=== PATIENT | female | born 1950 | race Two or more races ===

== ENCOUNTER → 2017-08-12 | Outpatient (CLI) | payer OTHER | LOC: FIMAGING 07:55 | PROVIDERS: ATTEND Family Medicine | DX: D32.9 Benign neoplasm of meninges, unspecified (principal) ==

== ENCOUNTER → 2017-08-31 | Outpatient (CLI) | payer OTHER | LOC: FIMAGING 14:17 | PROVIDERS: ATTEND Family Medicine | DX: R92.8 Other abnormal and inconclusive findings on diagnostic imaging of breast (principal) ==

== ENCOUNTER 2017-10-19 15:29 | Inpatient (IN) | payer OTHER ==
--- NOTE | 2017-10-19 15:41 | CPEKG ---
Heart Rate: 68 RR Interval: 882 P-R Interval: 188 QRSD Interval: 134 QT Interval: 440 QTC Interval: 469 P [place]: 45 QRS [place]: 3 T Wave [place]: 16 EKG Severity - ABNORMAL ECG - EKG Impression: SINUS RHYTHM EKG Impression: NONSPECIFIC INTRAVENTRICULAR CONDUCTION DELAY Electronically Signed By: Rodney Banuelos 19-Oct-2017 22:14:42
[2017-10-19 15:58] LABS: PLATELET COUNT 196 10^3/uL (150-400)
[2017-10-19] MEDS ORDERED: ASPIRIN 81 MG CHEWABLE TAB PO ONE (16:09)
[2017-10-19] MEDS ORDERED: MAG HYDROX/AL HYDROX/SIMETH 30 ML UDCUP PO ONE (16:09)
[2017-10-19] MEDS ORDERED: HYOSCYAMINE SULFATE 0.125 MG TAB PO ONE (17:14)
[2017-10-19] MEDS ORDERED: IOPAMIDOL (ISOVUE-370) 150 ML BTL IV ONE (17:40)
[2017-10-19] MEDS ORDERED: NITROGLYCERIN 0.4 MG BTL SL ONE (18:37)
--- NOTE | 2017-10-19 18:54 | EDPHY ---
H & P Stated Complaint: Chest Pressure and SOB started 0700 Time Seen by Provider: 10/19/17 15:55 HPI/ROS: This patient reports onset of chest discomfort described as pressure with occasional sharp pain started at 7:00 a.m. This morning. She reports it has been fairly constant since that time with peak intensity of 9/10, currently 8/ 10. She reports some radiation to the left shoulder associated with the symptoms. She notes no clear exacerbating factors. She did try 1 supple nitroglycerin prior to arrival without change in her discomfort. Her brought her in by private vehicle for further evaluation of her chest pressure. She reports associated fatigue over the past 2 weeks and reports that she has had intermittent fleeting pains for 2 weeks but no steady pressure until today. She also reports associated dyspnea that is mild with her symptoms today. ROS: Constitutional: Positive fatigue. No fevers. She reports increased sleep recently due to her fatigue. HEENT: No complaints new line pulmonary as per HPI-dyspnea and dyspnea on exertion recently. Cardiovascular: As per HPI. She also reports 8 months of ankle swelling since moving to [place] from [place]. She reports that she stop taking her amlodipine 3 weeks ago due to the perception that might be causing her ankle swelling. She reports compliance with her medications GI: Positive nausea and also some reflux symptoms described as occasional burning and belching. She reports increasing her AcipHex antacid dose 3 weeks ago due to increased GERD recently. : No urinary symptoms or other complaints Endocrine: No complaints integumentary: No diaphoresis or rash or pallor. Complete review of symptoms otherwise negative Source: Patient Exam Limitations: No limitations - Medical/Surgical History PMH: Coronary artery disease is noted on in angiogram in [place] 18 years ago. However it was not significant at that time. Her route salesperson injured digit prescribed nitroglycerin for occasional chest pains. She subsequently had negative stress tests and echocardiograms on a annular semi annual basis. Since moving [place] she has seen Kasi Pattonulder heart. Also history of GERD Other PMH: high cholestrol, ortho surg, tonsilectomy, c/s, abd surg, sinus surg , anxiety, depression, hypothyroidism, cataract surg - Family History Significant Family History: Heart disease (Family history of a brother with an OH at age 30 and mother with coronary disease in her 40s) - Social History Smoking Status: Never smoked Alcohol Use: Occasionally Drug Use: None - Physical Exam Exam: General Appearance: Pleasant 67-year-old female Alert, no distress. Eyes: Pupils equal and round no pallor or injection. ENT, Mouth: Mucous membranes moist. Respiratory: There are no retractions, lungs are clear to auscultation. Cardiovascular: Regular rate and rhythm. No murmur gallop or rub. No JVD. No peripheral edema. Gastrointestinal: Abdomen is soft and nontender, no masses, bowel sounds normal. Neurological: GCS 15. No focal deficits Skin: Warm and dry, no rashes. Musculoskeletal: Neck is supple nontender. Extremities are symmetrical, full range of motion. Psychiatric: Mood and affect normal DIFFERENTIAL DIAGNOSIS: After history and physical exam differential diagnosis was considered for myocardial ischemic disease, GERD with esophageal spasm, aortic pathology, pancreatitis, pneumothorax, pneumonia, pulmonary embolism Constitutional: Initial Vital Signs Temperature (C) 36.6 C 10/19/17 15:34 Heart Rate 69 10/19/17 15:34 Respiratory Rate 18 10/19/17 15:34 Blood Pressure 152/96 H 10/19/17 15:34 O2 Sat (%) 96 10/19/17 15:34 O2 Delivery Mode Room Air Allergies/Adverse Reactions: MELANIE Inhibitors Allergy (Verified 10/19/17 15:42) [id number] Reductase Inhibitor Allergy (Verified 10/19/17 15:42) Home Medications: Medication Instructions Recorded Aspirin 81mg (*) 10/19/17 Famotidine 10/19/17 Flonase Nasal [place] 10/19/17 Lexapro 10/19/17 Micardis 10/19/17 Rabeprazole Sodium 10/19/17 Repatha Syringe 10/19/17 Synthroid 10/19/17 Medical Decision Making - Diagnostics EKG Interpretation: EKG indication: Chest pain 12 lead EKG performed shortly after arrival at 3:39 p.m. Reveals sinus rhythm at 68 Intervals: P R of 188 QRS of 134, QTC of 469 Other intervals are normal. ST 2nd normal throughout. Overall assessment sinus rhythm with nonspecific interventricular conduction delay. Repeat EKG performed at 6:54 p.m. To eval for interval change reveals sinus rhythm at 50 a, persistent interventricular conduction delay and no interval change by my interpretation Imaging Results: Imaging Impressions Chest X-Ray 10/19/17 17:11 Impression: 1. Query dilated ascending aorta. 2. Clear lungs. Findings discussed with Emergency Department physician, JERICA ZAMBRANO at 10/19/2017 17:32. Dr. Zambrano plans on proceeding with CT angiogram of the chest to optimally characterize. Chest/Thorax CTA 10/19/17 17:32 Impression: 1. There is mild ectasia of the ascending thoracic aorta measuring 3.6 cm in diameter, with no evidence of naren aneurysm or dissection. 2. Atherosclerotic calcification of the left main and the proximal left anterior descending coronary artery. 3. There is no CT evidence of pulmonary artery thromboemboli. 4. Intraluminal air within the thoracic esophagus, which could be secondary to air swallowing or reflux. Findings were discussed with JERICA ZAMBRANO MD at 18:22, on 10/19/2017. Imaging: Discussed imaging studies w/ gelatin powder mixer Radiologist ED Course/Re-evaluation: Aspirin, IV, monitor Patient is treated with Maalox with mild improvement from 8/10 to 4/10 discomfort. She is also given Levsin sublingually thereafter without significant change from her 4/10. She then received nitroglycerin paste 0.5 inch & repeat EKG Studies: CBC without significant abnormalities, metabolic panel also normal, D- dimer normal, troponin normal In evaluating this patient's clinical presentation, past history and cardiac risk factor she has a heart score of 5. Given her ongoing chest discomfort that she warrants admission for further treatment and evaluation. After return from the CT angio chest for evaluation of the patient's ectatic aorta, she reports still ongoing for 10 discomfort. At this point she is treated with 0.5 in nitropaste and plan for admission. Her repeat EKG revealed no interval change. Her chest pain diminish to 2/10 and remained 2/10 after the nitropaste. She remained stable without further complaints for the duration of her emergency department course. I counseled her and her family in some detail regarding the results for tests and plan for admission. Cardiology is paged at 7:07 p.m. And hospitalist also paged for admission. I spoke with Dr. Solano shortly after we paged him regarding this patient he accepts her for transfer to [facility] PCU unit for further observation and workup. Also spoke with Dr. Kasia Uriostegui, route salesperson on-call for Dr. Valdes, patient's route salesperson. She will consult on this patient there is any red flag findings with her workup in the hospital. Discussion: Patient with multiple potential etiologies for chest pain-known coronary history, heart score of 5 in terms of risk factors and presentation makes myocardial ischemic disease without significant EKG change possibility. It is reassuring that she has had chest pain all day with a normal troponin so far. She does have hiatal hernia and known history of GERD and had partial improvement with Maalox making GERD possible causes for symptoms. She also has a generous ectatic ascending aorta. No evidence of dissection today by imaging. With history of hypertension recent please stopping her amlodipine she may be having secondary consequences of chronic hypertension. Dr. Cancino recommends a repeat CT angio chest in 1 year to evaluate for any interval change from her current ascending aorta that is just over 3.5 cm in diameter. We ruled out pulmonary embolism with no evidence of that on her CT and no other acute cardiopulmonary pathology noted except notation of calcification of her main stem and LAD artery on the CT scan. - Data Points Laboratory Results: Laboratory Results 10/19/17 15:45 10/19/17 15:45 10/19/17 10/19/17 10/19/17 15:45 15:45 15:45 WBC RBC Hgb Hct MCV MCH MCHC RDW Plt Count MPV Neut % (Auto) Lymph % (Auto) Bertie % (Auto) Eos % (Auto) Baso % (Auto) Nucleat RBC Rel Count Absolute Neuts (auto) Absolute Lymphs (auto) Absolute Monos (auto) Absolute Eos (auto) Absolute Basos (auto) Absolute Nucleated RBC Immature Gran % Immature Gran # D-Dimer 0.49 ug/mLFEU ug/mLFEU (0.00-0.50) Sodium 142 mEq/L mEq/L (135-145) Potassium 4.1 mEq/L mEq/L (3.3-5.0) Chloride 102 mEq/L mEq/L (97-110) Carbon Dioxide 27 mEq/l mEq/l (22-31) Anion Gap 13 mEq/L mEq/L (8-16) BUN 16 mg/dL mg/dL (7-23) Creatinine 0.9 mg/dL mg/dL (0.6-1.0) Estimated GFR > 60 Glucose 100 mg/dL mg/dL (70-100) Calcium 9.1 mg/dL mg/dL (8.5-10.4) Total Bilirubin 0.3 mg/dL mg/dL (0.1-1.4) AST 18 IU/L IU/L (14-46) ALT 21 IU/L IU/L (9-52) Alkaline Phosphatase 86 IU/L IU/L (38-126) Troponin I < 0.012 ng/mL ng/mL (0.000-0.034) Total Protein 7.1 g/dL g/dL (6.3-8.2) Albumin 3.9 g/dL g/dL (3.5-5.0) Lipase 181 IU/L IU/L (23-300) 10/19/17 15:45 WBC 5.01 10^3/uL 10^3/uL (3.80-9.50) RBC 4.29 10^6/uL 10^6/uL (4.18-5.33) Hgb 12.0 g/dL L g/dL (12.6-16.3) Hct 37.2 % L % (38.0-47.0) MCV 86.7 fL fL (81.5-99.8) MCH 28.0 pg pg (27.9-34.1) MCHC 32.3 g/dL L g/dL (32.4-36.7) RDW 13.4 % % (11.5-15.2) Plt Count 196 10^3/uL 10^3/uL (150-400) MPV 10.1 fL fL (8.7-11.7) Neut % (Auto) 58.5 % % (39.3-74.2) Lymph % (Auto) 28.9 % % (15.0-45.0) Bertie % (Auto) 9.8 % % (4.5-13.0) Eos % (Auto) 2.0 % % (0.6-7.6) Baso % (Auto) 0.4 % % (0.3-1.7) Nucleat RBC Rel Count 0.0 % % (0.0-0.2) Absolute Neuts (auto) 2.93 10^3/uL 10^3/uL (1.70-6.50) Absolute Lymphs (auto) 1.45 10^3/uL 10^3/uL (1.00-3.00) Absolute Monos (auto) 0.49 10^3/uL 10^3/uL (0.30-0.80) Absolute Eos (auto) 0.10 10^3/uL 10^3/uL (0.03-0.40) Absolute Basos (auto) 0.02 10^3/uL 10^3/uL (0.02-0.10) Absolute Nucleated RBC 0.00 10^3/uL 10^3/uL (0-0.01) Immature Gran % 0.4 % % (0.0-1.1) Immature Gran # 0.02 10^3/uL 10^3/uL (0.00-0.10) D-Dimer Sodium Potassium Chloride Carbon Dioxide Anion Gap BUN Creatinine Estimated GFR Glucose Calcium Total Bilirubin AST ALT Alkaline Phosphatase Troponin I Total Protein Albumin Lipase Medications Given: Discontinued Medications Al Hydroxide/Mg Hydroxide (Maalox Susp) 30 ml PO ONCE ONE Stop: 10/19/17 16:10 Last Admin: 10/19/17 16:16 Dose: 30 ml Aspirin (Aspirin) 324 mg PO EDNOW ONE Stop: 10/19/17 16:10 Last Admin: 10/19/17 16:15 Dose: 324 mg Hyoscyamine Sulfate (Levsin, Hyomax-Sl) 0.125 mg PO EDNOW ONE Stop: 10/19/17 17:15 Last Admin: 10/19/17 17:23 Dose: 0.125 mg Nitroglycerin (Nitrostat) 0.4 mg SL EDNOW ONE Stop: 10/19/17 18:38 Last Admin: 10/19/17 19:07 Dose: Not Given Nitroglycerin (Nitro-Bid 2%) 0.5 inch TP EDNOW ONE Stop: 10/19/17 19:02 Last Admin: 10/19/17 19:08 Dose: 0.5 inch Departure - Departure Disposition: [facility] Acute Clinical Impression: Acute chest pain Condition: Fair
--- NOTE | 2017-10-19 18:56 | CPEKG ---
Heart Rate: 58 RR Interval: 1034 P-R Interval: 180 QRSD Interval: 126 QT Interval: 468 QTC Interval: 460 P [place]: 63 QRS [place]: -2 T Wave [place]: 16 EKG Severity - ABNORMAL ECG - EKG Impression: SINUS RHYTHM EKG Impression: NONSPECIFIC INTRAVENTRICULAR CONDUCTION DELAY Electronically Signed By: Rodney Banuelos 19-Oct-2017 22:14:31
[2017-10-19] MEDS ORDERED: NITROGLYCERIN 2% 1 GM PACKET TP ONE (19:01)
[2017-10-19] MEDS ORDERED: ONDANSETRON 4 MG/2 ML VIAL IVP PRN (21:55)
[2017-10-19] MEDS ORDERED: NITROGLYCERIN 0.4 MG BTL SL PRN (22:06)
[2017-10-19] MEDS ORDERED: SUCRALFATE/DIPHENHYDR/MAALOX 240 ML BOTTLE PO PRN (22:06)
--- NOTE | 2017-10-20 00:11 | PDGENHP ---
History and Physical - Chief Complaint chest pressure/pain, reflux - History of Present Illness Source-patient provides history and appears reliable. EMR was reviewed and case discussed with accepting hospitalist provider. HPI-this is a very pleasant 67-year-old female with past medical history significant for nonocclusive coronary artery disease, hypothyroidism, SONYA on CPAP, GERD with history of hiatal hernia, HTN, HLD, depression who presents emergency department today with complaints of substernal chest pressure and dyspnea. Patient reports that she has had intermittent episodes of similar symptoms for the past 2 weeks. She describes him as burning type reflux symptoms which is why patient symptoms came on early this morning around 7:00 a.m. When she did not present to the emergency department right away. However today her pain was slightly worse as it was on constant with occasional sharp pain to it. Nothing was making her pain better or worsen given her cardiac history patient presented to the emergency department for further evaluation. She denies any associated diaphoresis, nausea or vomiting. Patient states that she initially has had issues with dyspnea on exertion on but that usually resolves with rest. However today patient states that her on dyspnea was coming on while she was also at rest. Patient has been having increasing fatigue for the past 2 weeks as well. No recent sick contacts. Denies fevers or chills. Patient has had increased need for sleep. She reports that she does wear her CPAP at home regularly. Additionally patient states that she has had increasing reflux type symptoms with belching on. She has had to increase her AcipHex to twice daily dosing which is not significantly affected her symptoms in particular. Patient denies any radiating pain she did describe to the ED provider some pain going down her left arm however when I further however described this pain patient reports that it comes from her posterior neck along the back of her shoulder blades and down into on this sub scabbed area. She reports occasional numbness and tingling not associated with exertion or position. She does have some neck pain and chronic headaches. History Information - Allergies/Home Medication List Allergies/Adverse Reactions: MELANIE Inhibitors Allergy (Verified 10/19/17 15:42) Saokkeh-Gox-Yrh Reductase Inhibitor Allergy (Verified 10/19/17 15:42) Home Medications: Aspirin [Aspirin 81mg (*)] 81 mg PO DAILY 10/19/17 [Last Taken 10/19/17] Cholecalciferol Vit D3 [Vitamin D3 (*)] 2,000 units PO DAILY 10/19/17 [Last Taken Unknown] Escitalopram Oxalate [Lexapro] 20 mg PO DAILY 10/19/17 [Last Taken 10/19/17] Evolocumab [Repatha Syringe] 140 mg SQ [id number] 10/19/17 [Last Taken Unknown] Famotidine [Pepcid 20 MG (*)] 20 mg PO HS 10/19/17 [Last Taken 10/18/17] Fluticasone Nasal [Flonase Nasal [place] (RX)] 2 sprays NASAL BID 10/19/17 [Last Taken 10/19/17] Herbals/Supplements -Info Only 1 ea PO DAILY 10/19/17 [Last Taken Unknown] Levothyroxine [Synthroid 112 mcg (*)] 112 mcg PO DAILY06 10/19/17 [Last Taken Unknown] [place]-3 Fatty Acids [Fish Oil 1000 mg (*)] 2,000 mg PO BID 10/19/17 [Last Taken 10/19/17] Rabeprazole Sodium [Aciphex] 20 mg PO DAILY 10/19/17 [Last Taken 10/19/17] Telmisartan/Hydrochlorothiazid [Micardis Hct 80-25 mg Tablet] 1 each PO HS 10/19 [Last Taken 10/18/17] cycloSPORINE 0.05% [Restasis Opht Drops(*)] 1 drop EACHEYE BID 10/19/17 [Last Taken Unknown] I have personally reviewed and updated: family history, medical history, social history, surgical history - Past Medical History Additional medical history: Hypothyroidism, CAD with nonocclusive disease and negative EKOS and stress test annually, GERD, hiatal hernia, HTN, HLD, depression, chronic headache, allergic rhinitis, SONYA on CPAP. - Surgical History Additional surgical history: Cardiac cath, multiple orthopedic surgeries, fundoplication, EGD, T tonsillectomy and adenoidectomy, , sinus surgeries. - Family History Additional family history: Brother history of CAD and IA age 30, mother with IA age 40s - Social History Smoking Status: Never smoked Alcohol Use: Occasionally (Occasional alcoholic drink on the weekends.) Drug Use: None Additional social history: Patient recently moved from [place] at the end of 2016. and lives with . Cor status-full. Review of Systems Review of Systems: ROS: 10pt was reviewed & negative except for what was stated in HPI & below Constitutional: Reports: no symptoms. Denies: chills, fever EENMT: Reports: no symptoms. Denies: blurred vision, nose congestion, sore throat Cardiac: Reports: chest pain, palpitations (Occasional, nothing recently.), other (Patient denies orthopnea. Wear CPAP at HS no longer has PND.). Denies: edema, lightheadedness, syncope Respiratory: Reports: shortness of breath (Patient reports dyspnea on exertion which is quite typical for her. More recently occasionally at rest as well.). Denies: cough, wheezing Gastrointestinal: Reports: other (Reflux symptoms as per HPI. Belching increased.). Denies: vomitting, abdominal pain, diarrhea, nausea Genitourinary: Reports: no symptoms. Denies: dysuria, hematuria Muscolosketal: Reports: muscle pain (Patient reporting muscle spasms neck and left shoulder blade.), neck pain. Denies: joint pain Skin: Reports: no symptoms. Denies: change in color, rash Neurological: Reports: anxiety (Controlled see note below.), depressed (Denies SI or HI. Patient reports symptoms are well controlled on her medications currently.), headache (Daily headaches at the base of her head and neck.), numbness (Occasionally hands and feet), tingling (Occasionally hands and feet.) . Denies: tremors, weakness Hematologic/Lymphatic: Reports: swollen glands, other (Mild submandibular lymphadenopathy.). Denies: anemia, blood clots Physical Exam Physical Exam: Selected Entries 10/19/17 15:34 Blood Pressure Automatic Method Heart Rate 69 Respiratory 18 Rate O2 Sat (%) 96 Temperature (C) 36.6 C Blood Pressure 152/96 H Mean Arterial 114 H Pressure (MAP) O2 Delivery Room Air Mode Temperature Oral Source Temp Pulse Resp BP Pulse Ox 36.6 C 68 14 126/70 H 95 10/19/17 22:00 10/19/17 22:00 10/19/17 22:00 10/19/17 22:00 10/19/17 22:00 Constitutional: no apparent distress, appears nourished, obese, other (NAD. Very pleasant adult female is sitting up in bed. Awake parents.), No chronically ill appearing Eyes: PERRL, anicteric sclera, EOMI, No scleral injection Ears, Nose, Mouth, Throat: moist mucous membranes, no oral mucosal ulcers, other ( No nasal discharge.), No poor dentition Cardiovascular: regular rate and rhythym, no murmur, rub, or gallop, other (No chest wall tenderness to palpation.), No systolic murmur (Distant heart sounds.) , No edema Peripheral Pulses: 1+: dorsalis-pedis (R), dorsalis-pedis (L) Respiratory: no respiratory distress, no rales or rhonchi, clear to auscultation , No reduced air movement, No respiratory distress Gastrointestinal: normoactive bowel sounds, soft, non-tender abdomen, no palpable masses, other (Obese abdomen. Minimal tenderness to palpation in the epigastric region.), No distension Genitourinary: no bladder tenderness, No muñoz in urethra Skin: warm, normal color, no rashes or abrasions Musculoskeletal: full muscle strength (Patient moves all extremities while lying in bed. Grossly normal.), No pain with ROM, No generalized weakness Neurologic: AAOx3, sensation intact bilaterally, other (Nonfocal exam.), No weakness, No facial droop Psychiatric: interacting appropriately, not encephalopathic, thought process linear, anxious (Pleasant and cooperative minimally anxious.), No depressed, No suicidal ideation, No agitated, No poor insight, No poor judgement, No poor memory Lymph, Heme, Immunologic: other (Submandibular LAD. Minimal tenderness to palpation.) Lab Data & Imaging Review 10/19/17 15:45 10/19/17 15:45 WBC 5.01 10^3/uL (3.80-9.50) 10/19/17 15:45 RBC 4.29 10^6/uL (4.18-5.33) 10/19/17 15:45 Hgb 12.0 g/dL (12.6-16.3) L 10/19/17 15:45 Hct 37.2 % (38.0-47.0) L 10/19/17 15:45 MCV 86.7 fL (81.5-99.8) 10/19/17 15:45 MCH 28.0 pg (27.9-34.1) 10/19/17 15:45 MCHC 32.3 g/dL (32.4-36.7) L 10/19/17 15:45 RDW 13.4 % (11.5-15.2) 10/19/17 15:45 Plt Count 196 10^3/uL (150-400) 10/19/17 15:45 MPV 10.1 fL (8.7-11.7) 10/19/17 15:45 Neut % (Auto) 58.5 % (39.3-74.2) 10/19/17 15:45 Lymph % (Auto) 28.9 % (15.0-45.0) 10/19/17 15:45 [place] % (Auto) 9.8 % (4.5-13.0) 10/19/17 15:45 Eos % (Auto) 2.0 % (0.6-7.6) 10/19/17 15:45 Baso % (Auto) 0.4 % (0.3-1.7) 10/19/17 15:45 Nucleat RBC Rel Count 0.0 % (0.0-0.2) 10/19/17 15:45 Absolute Neuts (auto) 2.93 10^3/uL (1.70-6.50) 10/19/17 15:45 Absolute Lymphs (auto) 1.45 10^3/uL (1.00-3.00) 10/19/17 15:45 Absolute Monos (auto) 0.49 10^3/uL (0.30-0.80) 10/19/17 15:45 Absolute Eos (auto) 0.10 10^3/uL (0.03-0.40) 10/19/17 15:45 Absolute Basos (auto) 0.02 10^3/uL (0.02-0.10) 10/19/17 15:45 Absolute Nucleated RBC 0.00 10^3/uL (0-0.01) 10/19/17 15:45 Immature Gran % 0.4 % (0.0-1.1) 10/19/17 15:45 Immature Gran # 0.02 10^3/uL (0.00-0.10) 10/19/17 15:45 D-Dimer 0.49 ug/mLFEU (0.00-0.50) 10/19/17 15:45 Sodium 142 mEq/L (135-145) 10/19/17 15:45 Potassium 4.1 mEq/L (3.3-5.0) 10/19/17 15:45 Chloride 102 mEq/L (97-110) 10/19/17 15:45 Carbon Dioxide 27 mEq/l (22-31) 10/19/17 15:45 Anion Gap 13 mEq/L (8-16) 10/19/17 15:45 BUN 16 mg/dL (7-23) 10/19/17 15:45 Creatinine 0.9 mg/dL (0.6-1.0) 10/19/17 15:45 Estimated GFR > 60 10/19/17 15:45 Glucose 100 mg/dL (70-100) 10/19/17 15:45 Calcium 9.1 mg/dL (8.5-10.4) 10/19/17 15:45 Total Bilirubin 0.3 mg/dL (0.1-1.4) 10/19/17 15:45 AST 18 IU/L (14-46) 10/19/17 15:45 ALT 21 IU/L (9-52) 10/19/17 15:45 Alkaline Phosphatase 86 IU/L (38-126) 10/19/17 15:45 Troponin I < 0.012 ng/mL (0.000-0.034) 10/19/17 15:45 Total Protein 7.1 g/dL (6.3-8.2) 10/19/17 15:45 Albumin 3.9 g/dL (3.5-5.0) 10/19/17 15:45 Lipase 181 IU/L (23-300) 10/19/17 15:45 Imaging Review: PA and Lateral Chest Indication: Chest pressure. Difficulty breathing. Comparison: None. Findings: The lungs are clear except for minimal peribronchial thickening. No pneumothorax, airspace consolidation, edema or effusion. The high right heart border has a prominent convex bulge which may represent dilated ascending aorta. The descending thoracic aorta is tortuous. Normal thoracic spine. Impression: 1. Query dilated ascending aorta. 2. Clear lungs. Findings discussed with Emergency Department physician, JERICA ZAMBRANO at 10/19/2017 17:32. Dr. Zambrano plans on proceeding with CT angiogram of the chest to optimally characterize. Contrast Enhanced CT Scan of the Chest CT (CT Thoracic Aortic Angiography) Clinical History: 67-year-old female with a history of hypertension, chest pressure, and dyspnea noted to possibly have a dilated ascending aorta on chest radiography. There is no antecedent trauma history. The patient does have a history of GERD. She had a negative serum troponin level. Technique: Following the uncomplicated intravenous administration of 100 mL of Isovue-370, a multidetector helical CT scan was obtained from the base of the neck inferiorly to the upper abdomen during peak arterial phase, with images reformatted in soft tissue, lung , liver, and bone windows, and are reformatted at 1.25 mm and 4/3 mm increments. Multiplanar reconstructions were reviewed on the workstation. The DFOV is 31.1 cm. Dose reduction techniques were utilized. Comparison Study: Chest radiography, at 5:08 PM today. Findings: CT Angiography: The ascending thoracic aorta is mildly ectatic at the level of the crossing right pulmonary artery, measuring 3.5 x 3.6 cm. The descending thoracic aorta at this same level measures 2.1 x 2.4 cm. There is no evidence of dissection, coarctation, or penetrating ulcerative plaque. Just above the sinus of Valsalva, the coronal oblique diameter of the aortic root is 2.8 cm, and the parasagittal oblique diameter is 3.1 cm. The visualized upper abdominal aorta is normal in caliber. There is a normal anatomic arrangement of the great vessels off of the aortic arch. There is atherosclerotic calcific plaque at the lateral margin of the left innominate artery. There is also atherosclerotic calcification associated with the junction of the left main and the proximal left anterior descending coronary artery. The heart is borderline-enlarged. There is a small amount of fluid in superior pericardial recess on series 7, images 26-32. The main pulmonary artery, the main right and left pulmonary arteries, and the first and second order pulmonary segments are contrast-opacified, with no filling defect to suggest acute or chronic thromboemboli. There is no interventricular septum deviation, nor is there any reflux of contrast into the intrahepatic IVC. Contrast-Enhanced CT Scan of the Chest: There is some intraluminal air within portions of the thoracic esophagus, which could be secondary to air swallowing or some reflux. There is some minor dependent changes seen posteriorly at the lung bases. There is no focal infiltrate, noncalcified pulmonary nodule, or pleural effusion. There is no pneumothorax or pneumomediastinum. There is no pathologically-enlarged adenopathy. The visualized portions of the thyroid gland are hypoplastic. The visualized upper abdomen is normal, given the arterial phase of contrast enhancement. The osseous structures are notable for a couple orthopedic anchors projected over the proximal right humeral head. There are some age-appropriate degenerative features of the mid-to -upper thoracic spine. There is no compression deformity or aggressive osseous lesion. Impression: 1. There is mild ectasia of the ascending thoracic aorta measuring 3.6 cm in diameter, with no evidence of naren aneurysm or dissection. 2. Atherosclerotic calcification of the left main and the proximal left anterior descending coronary artery. 3. There is no CT evidence of pulmonary artery thromboemboli. 4. Intraluminal air within the thoracic esophagus, which could be secondary to air swallowing or reflux. Findings were discussed with JERICA ZAMBRANO MD at 18:22, on 10/19/2017. Visualized and Interpreted Chest x-ray results: Yes Chest X-Ray results: no infiltrate, other EKG additional interpertation: NSR in the 60s. Nonspecific intraventricular delay. No acute ST changes. QTC 459. Assessment & Plan Assessment: 67-year-old female with past medical history significant for nonocclusive CAD, hiatal hernia with the symptomatic reflux who presents emergency department today with complaints of 1 day history of substernal chest pressure pain. Patient transferred from [facility] for further evaluation. #Acute chest pain (Acute) - differential diagnosis is most likely related to patient's reflux and hiatal hernia versus ACS versus less likely PE or aortic dissection. Patient did have some noted aortic ectasia but no signs of dissection or aneurysm on CT chest. There is notation of intraluminal air at the thoracic esophagus on due to air swallowing versus reflux. Her symptoms are more consistent with burning reflux types pain as well as some dysphagia and odynophagia. Patient received Maalox in the emergency department without any improvement in her symptoms. She had her typical regimen of of H2 mariaelena and PPI generally will help to improve her symptoms but more recently has had to increase her AcipHex. Patient's initial troponin was negative and there is no acute findings on her EKG. Will plan to admit patient to telemetry given her history. She typically undergoes regular stress testing on an outpatient basis and anticipate she should be due in the next month or 2. She has close follow-up with Dr. Valdes which if patient rules out which I suspect she will then she may follow up with him for outpatient stress testing. For tonight will plan to give patient a dose of Protonix p.o. And on shortly thereafter trial of a GI cocktail including sucralfate lidocaine and Maalox. # GERD/hiatal hernia - patient is status post a remote history of fundoplication. On it is no longer controlling her symptoms but at this point patient has plan to managed only medically. Will give patient dosing of Protonix as well as a GI cocktail including sucralfate to see if this will not alleviate the remainder of her symptoms. # anemia-suspect likely component of anemia of chronic disease. Patient without any evidence of active bleeding and denies any melena or hematochezia given she has reported ongoing fatigue for the past 2 weeks.. Patient may follow up with PCP after discharge. Chronic medical issues #CAD-reported nonocclusive disease based on a remote cardiac catheterization many years ago. Patient has since had annual stress testing/EKOS. Plan as noted above. #HLD-patient is on receiving Repatha therapy. #Hypothyroidism-resume patient's L-thyroxine replacement. #Benign essential hypertension-blood pressures at this point are acceptable. Continue patient's Micardis. #Depression-resume patient's Lexapro. #SONYA - resume CPAP at discharge. Did offer patient supplement she declined. Oxygen p.r.n. At HS. # chronic headache-patient with trigger points at the base of her head on as well as in her neck. She additionally has some muscle spasms along her shoulders. Heating pad p.r.n. Supportive care Tylenol p.r.n.. # allergic rhinitis-resume her Flonase at discharge. FEN - patient was tolerating oral intake adequately. IV fluids were not initiated. Electrolyte monitoring replacement if needed in the morning. Patient NPO after midnight should additional cardiac testing be required. PPX-SCDs holding anticoagulation pending rule out in the morning. Cor status-full. Disposition-patient admitted to observation on PCU for close cardiac monitoring. At this point anticipate less than 2 midnight stay pending studies as noted above.
[2017-10-20] MEDS: PANTOPRAZOLE SODIUM 40 MG TAB PO SCH ×3 (00:29→21:28)
[2017-10-20] MEDS: ACETAMINOPHEN 325 MG TAB PO PRN ×3 (01:08→18:18)
[2017-10-20 04:29] LABS: PLATELET COUNT 156 10^3/uL (150-400)
[2017-10-20] MEDS: ESCITALOPRAM OXALATE 10 MG TAB PO SCH (08:21)
[2017-10-20] MEDS ORDERED: NON-FORMULARY NEW DRUG (Escitalopram Oxalate [Lexapro] 20 MG) PO SCH (09:00)
--- NOTE | 2017-10-20 12:51 | HOSPPROG ---
Hospitalist Progress Note Assessment/Plan: DIAGNOSES: -episodes of chest pain with features suggestive of possible coronary induced angina, occurring at rest so would be unstable * Recurrent episode here in the hospital -has ruled out for myocardial infarction here, no presence of heart failure or hemodynamic instability -known coronary artery disease from angiography approximately 18 years ago, current CT with coronary calcifications noted -extensive family history of early onset symptomatic coronary disease -normocytic anemia, uncertain etiology * No prior laboratory data available so unclear with chronicity is * Will begin evaluation with at the moment testing for iron and reticulocyte count PLANS: * I reviewed options with her and her preference would be to have a treadmill stress testing here so I have ordered that * Further plans regarding assessment of her chest symptoms after stress test * Will have the lab check iron studies and reticulocyte count, further assessment of anemia after that; since hemoglobin obstructing it will need to be rechecked SUBJECTIVE: Had another episode of chest discomfort fairly suggestive of angina at today associated with some sweats and dyspnea, resolved spontaneously after about 10 min OBJECTIVE Vitals reviewed: Blood pressure bit low at 1 point during the otherwise vitals have all been normal [employer] Supervisor, my review: Sinus rhythm Exam: alert oriented skin warm dry color ok resps not labored lungs clear BSs heart regular abd soft nondistended nontender, bowel sounds present limbs warm, no edema iv site ok Laboratory data: Troponins negative x2 Hemoglobin is decreased further 10.5 today again normocytic Objective: Vital Signs Temp Pulse Resp BP Pulse Ox 36.9 C 66 16 148/85 H 92 10/20/17 11:23 10/20/17 11:23 10/20/17 11:23 10/20/17 11:23 10/20/17 11:23 Laboratory Results 10/20/17 03:05 10/20/17 03:05 10/19/17 10/20/17 10/21/17 06:59 06:59 06:59 Intake Total 100 450 Balance 100 450 ICD10 Worksheet Patient Problems: Problems Problem Status Onset Acute chest pain Acute
--- NOTE | 2017-10-20 14:46 | CPR ---
[f rep st] NONINVASIVE CARDIAC PROCEDURE REPORT DATE OF PROCEDURE: 10/20/2017 PROCEDURE: Treadmill stress test. REASON FOR TEST: 1. Chest discomfort. 2. Shortness of breath. 3. Known coronary artery disease. DESCRIPTION OF PROCEDURE: Resting EKG shows a regular sinus rhythm with a ventricular rate of 84. S he has no ectopy. No ischemic indication. Resting blood pressure is 136/80, resting heart rate 88. Stress portion: She was exercised according to the Osman protocol for a total of 4 minutes and 12 se conds. Reason for stopping: Significant shortness of breath and fatigue. Exercise blood pressure 1 60/86. Peak heart rate 133, which is greater than her 85% maximal heart rate of 128. She became fat igued and short of breath and treadmill was stopped. There were no ischemic changes on EKG during th e stress portion. She recovered spontaneously. Recovery blood pressure 140/80. Recovery heart rate 73. She did becom e less short of breath and was asymptomatic at baseline post-exercise. The stress test was reviewed with Dr. Kasia Uriostegui. RECOMMENDATION: Due to poor tolerance, shortness of breath, and chest pain, is to proceed with a nuc lear stress test. This can be done either in-house or as an outpatient. At this time, she currently is stable. /[id number]/MODL
[2017-10-20] MEDS: ASPIRIN 81 MG CHEWABLE TAB PO SCH (15:26)
--- NOTE | 2017-10-20 15:29 | ASMTCMCOM ---
CM Note CM Note Notes: 10/20/2017 Case Management Note Discussed pt during rounds this morning. Pt admitted for chest pain and subsequent workup. Pt is and living independently prior to admission. There are no PT or OT evals ordered at this time. Case Management d/c poc: anticipating independent with follow up as directed. Case Management available if needs change. Date Signed: 10/20/2017 03:28 PM Electronically Signed By:Kati Crowder RN
--- NOTE | 2017-10-20 16:56 | ECHO ---
[email or web address] [address] Main: [phone] Fax: Transthoracic Echocardiogram Name: PANFILO VILCHIS MR#: [id number] Study Date: 10/20/2017 Study Time: 02:58 PM Date of : 1950 Age: 67 year(s) Height: 160 cm (63 in.) Weight: 87.54 kg (193 lb.) BSA: 1.9 m2 Gender: Female Examination: Echo Indication: Exertional dyspnea, ? pulmonary htn Image Quality: Adequate Contrast: Requested by: Ck Mcintyre BP: 148 mmHg/85 mmHg Heart Rate: Rhythm: Indication: Exertional dyspnea, ? pulmonary htn Procedure Staff Civil Engineering Design Draftsperson: Carmen Escalona [facility] Reading Physician: Shabbir Abbott MD Requesting Provider: Conclusions: Dilated left ventricle. Low normal left ventricular systolic function. The ejection fraction is estimated to be 50-55 %. No regional wall motion abnormality. Mild mitral valve regurgitation is present. Mild aortic valve regurgitation is present. Mild tricuspid regurgitation is present. Right ventricular systolic pressure measures 27mmHg. Measurements: Chambers Valvular Assessment AV/MV Valvular Assessment TV/PV Normal Normal Normal Name Value Range Name Value Range Name Value Range Ao Cait (2D): 3.0 cm (1.4 cm-2.6 AV Vmax: 1.50 m/s (1 m/s-1.7 TR Vmax: 2.33 mm/s ( - ) cm) m/s) TR PGmax: 22 mmHg ( - ) IVSd (2D): 0.8 cm (0.6 cm-1.1 AV meanP mmHg ( - ) syst. PAP: 27 mmHg ( - ) cm) ZULEIKA (VTI): 2.1 cm ( - ) PV Vmax: 0.84 m/s (0.6 m/s-0.9 LVDd (2D): 5.0 cm (3.9 cm-5.3 AR (PHT): 348 ms ( - ) m/s) cm) MV E Vmax: 0.97 m/s ( - ) PV PGmax: 3 mmHg ( - ) LVDs (2D): 3.4 cm (2.1 cm-4 MV A Vmax: 1.22 m/s ( - ) cm) MV E/A: 0.80 ( - ) LVPWd (2D): 1.0 cm ( - ) MV PHT: 0.057 s ( - ) LVOTd 2.0 cm 2.0 cm mm MVA (PHT): 3.9 s ( - ) LVEF (MOD4): 48 % (>=55 %) EF Range: 50-55 % RVDd(2D): 2.7 cm (1.9 cm-3.8 cmmm) Continued Measurements: Chambers Valvular Assessment AV/MV Valvular Assessment TV/PV Patient: PANFILO VILCHIS Study Date: 10/20/2017 Page 1 of 2 02:58 PM Name Value Name Value Name Value LADs: 3.7 cm MV DecTime: 229 m/s CVP (est.): 5 mmHg RA Area: 14.4 cm2 MV E' Septal: 0.05 m/s MV E/E' Septal: 19.50 MV E/E' Lateral: 13.00 AR Vmax: 4.22 cm/s Additional Vessels Name Value Ao Ascendin.8 cm Inferior Vena Cava: 1.3 cm Findings: Left Ventricle: Dilated left ventricle. No LV hypertrophy. Low normal left ventricular systolic function. The ejection fraction is estimated to be 50-55 %. No regional wall motion abnormality. Diastolic dysfunction is present. . Right Ventricle: Normal size right ventricle. Normal RV function. Left Atrium: The left atrium is normal in size. Right Atrium: The right atrium is normal in size. Mitral Valve: The mitral valve is normal in appearance and function. Mild mitral valve regurgitation is present. No mitral stenosis is present. Aortic Valve: The aortic valve is normal in appearance and function. Mild aortic valve regurgitation is present. Tricuspid Valve: The tricuspid valve is normal in appearance and function. Mild tricuspid regurgitation is present. The pulmonary artery pressure is normal. Right ventricular systolic pressure measures 27mmHg. Pulmonic Valve: The pulmonic valve is normal in appearance and function. There is no pulmonic regurgitation seen. Aorta: The aorta is normal. Normal size aortic root measuring 3.0 cm. Normal size ascending aorta measuring 2.8 cm. IVC: The IVC is normal sized. Pericardium: No pericardial effusion. No pleural effusion. Exam Comments: (No Signature Object) Patient: PANFILO VILCHIS Study Date: 10/20/2017 Page 2 of 2 02:58 PM [id number]
--- NOTE | 2017-10-20 17:54 | HOSPPROG ---
Hospitalist Progress Note Assessment/Plan: DIAGNOSES: -episodes of chest pain with features suggestive of possible coronary induced angina, occurring at rest so would be unstable * Recurrent episode here in the hospital -has ruled out for myocardial infarction here, no presence of heart failure or hemodynamic instability -known coronary artery disease from angiography approximately 18 years ago, current CT with coronary calcifications noted -extensive family history of early onset symptomatic coronary disease -normocytic anemia, uncertain etiology * No prior laboratory data available so unclear with chronicity is * Will begin evaluation with at the moment testing for iron and reticulocyte count PLANS: * I reviewed options with her and her preference would be to have a treadmill stress testing here so I have ordered that * Further plans regarding assessment of her chest symptoms after stress test * Will have the lab check iron studies and reticulocyte count, further assessment of anemia after that; since hemoglobin obstructing it will need to be rechecked SUBJECTIVE: Had another episode of chest discomfort fairly suggestive of angina at today associated with some sweats and dyspnea, resolved spontaneously after about 10 min OBJECTIVE Vitals reviewed: Blood pressure bit low at 1 point during the otherwise vitals have all been normal Clinical Quality Analyst, my review: Sinus rhythm Exam: alert oriented skin warm dry color ok resps not labored lungs clear BSs heart regular abd soft nondistended nontender, bowel sounds present limbs warm, no edema iv site ok Laboratory data: Troponins negative x2 Hemoglobin is decreased further 10.5 today again normocytic Objective: Vital Signs Temp Pulse Resp BP Pulse Ox 36.8 C 65 16 142/85 H 90 L 10/20/17 15:38 10/20/17 15:38 10/20/17 15:38 10/20/17 15:38 10/20/17 15:38 Laboratory Results 10/20/17 03:05 10/20/17 03:05 10/19/17 10/20/17 10/21/17 06:59 06:59 06:59 Intake Total 100 450 Balance 100 450 ICD10 Worksheet Patient Problems: Problems Problem Status Onset Acute chest pain Acute
--- NOTE | 2017-10-20 18:28 | PDMN ---
Medical Necessity Medical necessity: Pt meets INPT criteria per MD as of 10/20/17: est. LOS >2 MN for ongoing eval/tx of chest pain, pt remains markedly limited by exertional dyspnea; Lexiscan stress test and PFTs pending.
[2017-10-20] MEDS ORDERED: TELMISARTAN 40 MG TAB PO SCH (21:00)
[2017-10-20] MEDS ORDERED: [UNRECOGNIZED DRUG - OTHER] PO SCH (21:00)
[2017-10-20] MEDS ORDERED: HYDROCHLOROTHIAZIDE 25 MG TAB PO SCH (21:00)
[2017-10-20] MEDS ORDERED: FAMOTIDINE 20 MG TAB PO SCH (21:00)
[2017-10-21] MEDS ORDERED: LEVOTHYROXINE 112 MCG TAB PO SCH (06:00)
[2017-10-21] MEDS: ASPIRIN 81 MG CHEWABLE TAB PO SCH (07:57)
[2017-10-21] MEDS: PANTOPRAZOLE SODIUM 40 MG TAB PO SCH (07:57)
[2017-10-21] MEDS: ESCITALOPRAM OXALATE 10 MG TAB PO SCH (07:58)
[2017-10-21] MEDS ORDERED: ALBUTEROL 3 ML DEYVIAL ONE (08:53)
[2017-10-21] MEDS ORDERED: REGADENOSON 0.4 MG/5 ML SYR IVP ONE (09:55)
--- NOTE | 2017-10-21 11:35 | CPR ---
[f rep st] NONINVASIVE CARDIAC PROCEDURE REPORT DATE OF PROCEDURE: 10/21/2017 PROCEDURE: Nuclear Lexiscan stress test. REASON FOR TEST: 1. Abnormal treadmill test. 2. Chest discomfort. 3. Known nonobstructive coronary artery disease. Resting EKG shows a regular sinus rhythm with right bundle branch block. There are no ischemic morton es. Blood pressure 110/72, heart rate 69, oxygen saturation 91%. STRESS PORTION/LEXISCAN NUCLEAR STRESS TEST: Lexiscan was injected rapidly, followed by saline flush . Cardiolite was then injected, followed by saline flush. She did feel flushed followed by shortnes s of breath and headache during the infusion. Peak blood pressure 114/66. Peak heart rate 97. Her symptoms did spontaneously subside into the recovery. There were no EKG changes during the stress po rtion. RECOVERY: Resting recovery blood pressure 110/68, heart rate 87, oxygen saturation 92%. The symptom s had subsided by the conclusion of the test. There were no EKG changes. At this time she is stable for nuclear imaging. /[id number]/MODL
[2017-10-21] MEDS: ACETAMINOPHEN 325 MG TAB PO PRN (11:55)
[2017-10-21 12:20] VITALS: BP 115/67
--- NOTE | 2017-10-21 13:27 | PDDCSUM ---
Discharge Summary Discharge Summary: DISCHARGE DIAGNOSES: -chest pain, uncertain etiology -coronary calcifications noted on CT scan -ruled out myocardial infarction, normal ventricular function and valvular function -limiting exertional dyspnea of recent onset, uncertain etiology -iron deficiency anemia is identified -has had recent colonoscopy and upper endoscopy (6 months ago), uncertain if upper endoscopy involved biopsies -chronic sleep apnea chronically using CPAP nightly PROCEDURES: CT chest: No PE no other explanation for her symptoms, though coronary calcifications are noted Echocardiogram: Normal LV function, no significant valve dysfunction, normal pulmonary pressures at 27 Treadmill stress test: Remarkable for significant decrease fitness level, stop for dyspnea at 4.5 mins. Achieved target heart rate with no chest pain or EKG changes Lexiscan stress test with no evidence of cardiac dysfunction or ischemia Pulmonary function tests were normal with bedside spirometry HOSPITAL COURSE SUMMARY: This patient came to the hospital with onset of exertional dyspnea and chest pain. This been going on for approximately 2 weeks. The here in the hospital she continues to have exertional dyspnea and occasionally some chest discomfort. She has ruled out for myocardial infarction. On testing so far there is no sign of any acute heart disease, she has excellent cardiac function in terms of muscle and valves and no heart failure, no arrhythmia. She has no evidence of any pulmonary issues with CT scan and PFTs done. Echocardiogram showed very normal pulmonary pressures despite her obesity and known sleep apnea. We did a treadmill stress test which showed no particular abnormalities of pulse rate, blood pressures, or EKGs and she had no chest pain. However she was limited to 4.5 min of exercise due to dyspnea without hypoxemia. Bedside spirometry was done and shows no evidence of obstructive or restrictive disease. Finally but blood test did show some anemia with hemoglobin of 10.5. This was normocytic but iron studies are showing an iron saturation of 14% and a ferritin of 7, confirming that she does have a iron deficiency as well as possibly some other causes of anemia. Notably she had a colonoscopy 6 months ago which was unremarkable and an upper endoscopy 6 months ago which also did not show anything that would cause bleeding, however is unclear whether she had small biopsies to look for sprue or not. She does have a history of irritable bowel symptoms. She does state that at 1 point she had improvement in chronic digestive symptoms on a gluten free diet but subsequently did seem to help as much. At this time she has ongoing exertional dyspnea and chest pain of uncertain etiology. It may be that her iron deficiency anemia is causing this trouble although her anemia is not as significant as I would expect to cause the symptoms. I do suspect that she has a significant amount of deconditioning and she is obese and it may be just that she has these problems ongoing. I do know however that she has coronary atherosclerosis due to calcification seen on CT scanning, and I have counseled her that if we do not find a way to improve her exertional dyspnea and her chest discomfort, she may need to consider angiography with Dr. Valdes to be certain she does not have a balanced ischemia on the nuclear images or some other cause of false negative testing on the stress test. She has an appoint with Dr. Valdes coming up later this month. At this time in terms of her anemia she has not had menstrual periods for a good number of years, has not noticed any blood coming from her gut, and has endoscopies that have not shown anything in particular as far she is aware. I would recommend at this time that she review with her director corporate compliance the possibility of celiac disease makes sure that along the way we have done appropriate biopsies to rule that out, and also recommend that we consider small bowel capsule endoscopy to be certain we are not missing a cause of iron deficiency anemia there. The patient does give some blood donations but she has given to in the past 12 months anything very high iron diet. It is possible that these donations or at least contributing to her iron deficiency. She has an appointment with Gastroenterology group coming up later this month as well PENDING TEST RESULTS: None MEDICATION CHANGES: Iron supplements along with vitamin-C are added FOLLOW-UP PLAN: She has an appointment with Dr. Valdes in Cardiology Clinic and encourage her to keep that appointment, review that she is getting appropriate preventive measures for arterial disease and review how she is doing with her dyspnea and chest pain. She has an appointment at the gastroenterology clinic and I encouraged her to follow up there for assessment of her iron deficiency anemia, she could potentially need capsule endoscopy and should be reviewed that she has actually had small-bowel biopsies to look for celiac disease She will continue nightly use of CPAP She does understand the possible false negative results of the stress test and that if she has ongoing breathing and chest pain symptoms she may need further cardiac evaluation Greater than 35 minutes bedside and care coordination time today
--- NOTE | 2017-10-21 15:32 | ASDISCHSUM ---
Discharge Information Plan Status:Home with No Needs Medically Cleared to Leave:10/21/2017 Discharge Date:10/21/2017 02:39 PM CM D/C Disposition:Home, Routine, Self-Care ADT D/C Disposition:Home, Routine, Self-Care Projected Discharge Date:10/21/2017 02:39 PM Transportation at D/C: Discharge Delay Reason: Follow-Up Date:10/21/2017 02:39 PM Discharge Slot: Final Diagnosis: Placement Information Patient Contact Information Contact Name:GUSTAVOLAURAAlena Relationship: Address:[address] Work Phone: City:[place] Alternate Phone: [facility]/Zip Code:[place] [address] Email: Financial Information Financial Class:Medicare Advantage Plans Primary Plan Desc:DANIELLE ASHRAF PP MEDICARE Primary Plan Number:[id number] Secondary Plan Desc: Secondary Plan Number: Assessment Information LACE LACE Length of stay for Answers: 1 day current admission Acuity / Level of Answers: Yes Care: Did the patient have an inpatient admission? Comorbidities - select Answers: Coronary Artery Disease all that apply Other Notes: HTN; GERD # of Emergency department Answers: 1-2 visits in the last 6 months Social determinants Answers: Mental health diagnosis (anxiety, depression, pers onality disorders, etc.) Score: 11 Date Signed: 10/21/2017 03:29 PM Electronically Signed By:Kati Crowder RN [facility] CM Progress Note CM Note CM Note Notes: 10/20/2017 Case Management Note Discussed pt during rounds this morning. Pt admitted for chest pain and subsequent workup. Pt is and living independently prior to admission. There are no PT or OT evals ordered at this time. Case Management d/c poc: anticipating independent with follow up as directed. Case Management available if needs change. Date Signed: 10/20/2017 03:28 PM Electronically Signed By:Kati Crowder RN Case Management Discharge Plan Note Case Management Discharge Discharge Order Complete? Answers: Yes Patient to Obtain Answers: Independently Medications Discharge Comments Notes: 10/21/2017 Case Management Note Pt to d/c independent with follow up as directed. Date Signed: 10/21/2017 03:31 PM Electronically Signed By:Kati Crowder RN Intervention Information
== END 2017-10-21 14:39 | disposition home or self-care (01) | DRG 313 ==
LOC: CED 15:29 → OBSVTOIN 19:13 → CEDHOLD 19:13 → INTOOBSV 19:13 → F2W 21:52
PROVIDERS: ADMIT Family Medicine; ATTEND Family Medicine
DX: R07.9 Chest pain, unspecified (principal); I25.10 Atherosclerotic heart disease of native coronary artery without angina pectoris; D50.9 Iron deficiency anemia, unspecified; R06.00 Dyspnea, unspecified; G47.33 Obstructive sleep apnea (adult) (pediatric); E66.9 Obesity, unspecified; E03.9 Hypothyroidism, unspecified; E78.5 Hyperlipidemia, unspecified; K44.9 Diaphragmatic hernia without obstruction or gangrene; K21.9 Gastro-esophageal reflux disease without esophagitis; I10 Essential (primary) hypertension; R51 Headache; J30.9 Allergic rhinitis, unspecified
CPT/HCPCS: 71046-PO; 71275-PO; 80053-PO; 83690-PO; 84484-PO; 85025-PO; 85378-PO; A9500; G0378; J2785; J7613; Q9967

== ENCOUNTER → 2018-03-04 | Day surgery (SDC) | payer OTHER ==
[~2018-03-04] MED LIST: ASPIRIN EC 325 MG TAB PO ONE; ATROPINE SULFATE 1 MG/10 ML SYR IVP PRN; DIAZEPAM 5 MG TAB ONE; DIAZEPAM 5 MG TAB PO ONE; FAMOTIDINE 20 MG TAB ONE; FAMOTIDINE 20 MG TAB PO ONE; HYDROCODONE/APAP 5/325 TAB PO PRN; IOPAMIDOL (ISOVUE-370) 150 ML BTL IV ONE; LIDOCAINE 1% 300 MG/30 ML SDV ONE; MIDAZOLAM 2 MG/2 ML VIAL ONE; NITROGLYCERIN 0.4 MG BTL SL PRN; NS 1,000 ML IV ONE; ONDANSETRON 4 MG/2 ML VIAL IVP PRN; OXYCODONE/APAP 5/325 TAB PO PRN; diphenhydrAMINE 25 MG CAP PO ONE; fentaNYL 100 MCG/2 ML INJ ONE
[2018-03-04 08:21] LABS: PLATELET COUNT 180 10^3/uL (150-400)
[2018-03-04 08:34] LABS: INR 0.9 (0.83-1.16); PROTIME(PATIENT) 12.4 SEC (12.0-15.0)
--- NOTE | 2018-03-04 08:40 | PDPROPOC ---
Sedation Plan of Care Sedation Plan of Care: vital signs stable, mental status noted, patient educated of risks, benefits, alternatives, patient can tolerate sedation ASA Classification: ASA 2 Planned drugs: fentanyl, midazolam Mallampati Score: Class 2 Mallampati Reference Image: Patient passed 3-3-2 rule?: Yes
--- NOTE | 2018-03-04 08:43 | PDGENHP ---
History & Physical Chief Complaint: Dyspnea History of Present Illness: Patient is a 67-year-old female with known coronary artery disease by coronary artery calcifications who presented with symptoms of dyspnea. Her exercise tolerance test was abnormal, however, her myocardial perfusion imaging was within normal limits. Pulmonary evaluation was unremarkable. Patient presents for cardiac catheterization to further evaluate her condition. Pertinent Past, Social, Family History: Hypertension, hyperlipidemia, obstructive sleep apnea, mild aortic stenosis. Relevant Physical Exam: General - patient is awake alert and oriented. Lungs - clear to auscultation bilaterally. CV - regular rate and rhythm, S1, S2, grade 2/6 systolic ejection murmur. EXT - no edema. Cardiorespiratory Assessment: Patient is a 67-year-old female with coronary artery disease by coronary artery calcium scoring who presents with symptoms of dyspnea concerning for an anginal equivalent. Exercise tolerance testing was notable for poor functional capacity and reproduction of symptoms. Myocardial perfusion imaging was within normal limits. Pulmonary evaluation to look for an alternative explanation for her symptoms was unremarkable. Reviewed risks and benefits of cardiac catheterization with patient and her to further evaluate her condition. We will arrange to have this performed.
--- NOTE | 2018-03-04 10:09 | CPIP ---
DATE OF PROCEDURE: 03/04/2018 PROCEDURE: 1. Coronary angiography. 2. Left ventriculography. INDICATION: 1. Known coronary artery disease by coronary artery calcium scoring. 2. Dyspnea on exertion concerning for an anginal equivalent. 3. Abnormal exercise tolerance test with reproduction of symptoms and poor exercise capacity. 4. normal myocardial perfusion imaging. ACCESS: Patient was prepped and draped in sterile fashion. 1% lidocaine was used to anesthetize the right inguinal region. A 6-Swedish introducer sheath was placed selectively into the right common fe moral artery via modified Seldinger technique. CORONARY ANGIOGRAPHY: A 6-Swedish JL4 catheter was advanced to the left main coronary artery and imag es obtained. The left main coronary artery bifurcated into an LAD and circumflex coronary arteries. The left main coronary artery appeared normal. The left anterior descending coronary artery gave ri se to 1 prominent diagonal branch. The left anterior descending coronary artery had mild diffuse dis ease throughout. There was no stenosis greater than 15%. The diagonal artery is free of any signifi cant disease. The circumflex coronary artery was a large vessel. The circumflex coronary artery was codominant. Circumflex coronary artery had mild luminal irregularities throughout. There was no st enosis greater than 15%. A 6-Swedish no-torque right catheter was advanced to the right coronary juanito ry and images obtained. The right right coronary artery is codominant. The right coronary artery ap peared normal. LEFT VENTRICULOGRAPHY: A 6-Swedish pigtail catheter was advanced in the left ventricle and images obt ained. Left ventricle is normal size, had normal systolic function. The ejection fraction was appro ximately 55%. Left ventricular end-diastolic pressure was 17 mmHg. COMPLICATIONS: None. CONCLUSIONS: 1. Mild coronary artery disease without flow limitation. 2. Normal left ventricular size and systolic function. 3. Plan is for medical management. /[id number]/MODL
--- NOTE | 2018-03-04 12:13 | CPEKG ---
Test Reason : OPEN Blood Pressure : / mmHG Vent. Rate : 072 BPM Atrial Rate : 072 BPM P-R Int : 215 ms QRS Dur : 155 ms QT Int : 425 ms P-R-T Axes : 055 003 001 degrees QTc Int : 466 ms Sinus rhythm Borderline prolonged MS interval Right bundle branch block RBBB more pronounced in today's ECG Confirmed by Ernst Valadez ([id number]) on 03/04/2018 12:12:49 PM Referred By: Confirmed By:Ernst Valadez
== END | disposition home or self-care (01) ==
LOC: FCATH 07:26
PROVIDERS: ATTEND Internal Medicine Cardiovascular Disease
DX: I25.10 Atherosclerotic heart disease of native coronary artery without angina pectoris (principal); E78.5 Hyperlipidemia, unspecified; I10 Essential (primary) hypertension
CPT/HCPCS: C1760; J1644; J2250; J3010; Q9967